=== PATIENT | male | born 1975 | race Caucasian/White ===

== ENCOUNTER 2020-03-14 13:37 | Observation (INO) ==
[2020-03-14] MEDS ORDERED: ASPIRIN 81 MG TAB.CHEW PO ONE (14:03)
--- NOTE | 2020-03-14 14:08 | ERNOTE ---
Dyspnea - Date Date of Service: 03/14/20 - General Presenting Symptoms: shortness of breath, other - chest tightness Time Seen by Provider: 03/14/20 13:46 Source: patient Exam Limitations: no limitations - Immun/Allergies/Home Medications Immunizations: IMMUNIZATION HX Immunizations Up to Date Yes History of Influenza Vaccine No Hx Pneumococcal Vaccination No Allergies/Adverse Reactions: Allergies No Known Allergies Allergy (Verified 03/14/20 13:48) seasonal Allergy (Uncoded 03/14/20 13:48) Home Medications: HOME MEDICATIONS multivitamin 1 tab PO DAILY 10/27/18 [Last Taken Unknown] Mv-Min/Vit C/Glut/Lysine/Hc124 [Airborne Tablet Chewable] 1 ea PO DAILY 03/14/20 [Last Taken Unknown] [place]-3 Fatty Acids/Fish Oil [Fish Oil 1,000 mg Capsule] 1 ea PO DAILY 03/14/20 [Last Taken Unknown] - History of Present Illness Narrative: -44-year-old man 44-year-old male presents today for an ongoing 8-week history of shortness of breath, tightness, mild chest pain. Patient notes he also gets significant burning in his esophagus post eating. He is unsure if the symptoms are related however they appear to coincide together on a daily basis. Patient has significant history of PE in 2013 he was anticoagulated for 6 months and then DC'd the treatment, he is unsure of the cause of his original PE and is unaware if he has any certain genetic blood related risk factors. Patient notes he also has developed a cough over the past few weeks. He gets significant amount of sinus drainage on a daily basis, he notes it has been blood tinged on occasion he also notes significant dry mouth and mild sore throat. He notes this condition has been same over the past few weeks. Patient notes he is not currently on any anticoagulation, he notes he has not had any significant home medications that improve or worsen his symptoms. He notes he has not attempted any other medications. Review of Systems - Review of Systems Constitutional: Absent: fever, chills, weakness, fatigue EYE: Absent: blurred vision, double vision ENT: Present: nose congestion, nasal drainage, sore throat. Absent: ear pain Respiratory: Present: shortness of breath, cough Cardiology: Present: chest pain - tightness. Absent: syncope, edema Gastrointestinal/Abdominal: Absent: nausea, vomiting, diarrhea, constipation Musculoskeletal: Present: joint pain - right knee previous injury. Absent: back pain Neurological: Absent: weakness, numbness, tingling Endocrine: Absent: unexplained weight gain, unexplained weight loss All Other Systems: All systems neg except as marked Medical History (Last Reviewed 03/14/20 @ 14:05 by ABRAHAM Rodriguez) Has not received influenza vaccination in current influenza season (Acute) Onset Date: 12/23/18 Perforation of tympanic membrane (Chronic) Onset Date: 02/22/13 Obstructive sleep apnea (Chronic) Onset Date: Unknown Hypogonadism in male (Chronic) Onset Date: Unknown DVT (deep venous thrombosis) (Chronic) Onset Date: 06/24/14 Depression (Chronic) Onset Date: 03/25/14 Bronchitis (Acute) Pulmonary embolism Surgical History: Surgical History (Last Reviewed 03/14/20 @ 14:05 by ABRAHAM Rodriguez) History of tonsillectomy (Acute) Onset Date: Unknown History of nasal septoplasty (Acute) Onset Date: Unknown History of cholecystectomy (Acute) Onset Date: Unknown History of bunionectomy (Inactive) Onset Date: 01/29/06 Family History: Family History (Last Reviewed 03/14/20 @ 14:05 by ABRAHAM Rodriguez) Other Alive and well Social History: (Last Reviewed 03/14/20 @ 14:05 by ABRAHAM Rodriguez) Social History: correction: No Marital status: household members: spouse current occupational status: employed current occupation: verification engineer Highest education level completed: Associate degree: occupat Service: No Tobacco: Smoking Status: Never smoker Alcohol: alcohol intake: current alcohol intake frequency: holiday/special occasion Substance Use: substance use type: does not use Dietary Habits: caffeine: Yes Exercise: frequency: does not exercise Physical Exam - Physical Exam General Appearance: Present: wd/wn, alert, mild distress Head Exam: Present: normal inspection, no evidence of injury Eye Exam: Normal inspection: bilateral, PERRL: bilateral, EOMI: bilateral Ears, Nose, Throat: Present: normal ENT inspection, other - Minimal erythema the posterior wall of the oropharynx Neck: Present: normal inspection, nontender Respiratory: Present: normal breath sounds, no accessory muscle use, chest nontender, lungs clear, other - Mild desaturation upon discussion Cardiovascular/Chest: Present: regular rate, rhythm, no murmur, normal peripheral pulses Peripheral Pulses: N=norm/S=strong/W=weak/B=bound/A=absent: Radial (R): Normal, Radial (L): Normal, Dorsalis-pedis (R): Normal, Dorsalis-pedis (L): Normal Gastrointestinal/Abdominal: Present: normal bowel sounds, nondistended, soft, tenderness - Mild in the upper right quadrant Extremity Exam: Present: normal inspection, normal range of motion Neurological Exam: Present: alert, oriented, normal mood/affect, no motor /sensory deficits Skin Exam: Present: normal color, warm/dry Progress - Date and Time Seen: Date and Time: 03/14/20 14:07 Patient has been evaluated a thorough HPI as well as past medical history is been taken. Physical exam was performed, note patient had significant decrease in his saturation upon having a conversation into the upper 80s. An EKG was performed, there are inverted T waves, could be a possible sign of ischemia. Chest pain protocol has been initiated, labs are being obtained. Patient is mildly tachycardic. With patient's current presentation and his previous history of a PE feel there is also need to rule out the possibility of a recurrent PE at this time. D-dimer was ordered we will continue chest pain protocol as well as acute monitoring of patient for worsening or changes. 03/14/20 14:58 Patient's d-dimer came back significantly elevated he is still continued to have significant desaturation as well as tachypnea, tachycardia, shortness of breath. At this time believe it is warranted to proceed with a CTA chest to evaluate for PE. Discussed this with patient, continue monitoring and further testing is warranted. He expressed understanding at this time. - Results and Orders Patient's Lab Results:: I have reviewed the patient's lab results. Results and Orders: Laboratory Tests 03/14/20 03/14/20 03/14/20 14:13 14:13 14:13 Hgb 15.3 PT 11.7 H INR (Anticoag Therapy) 1.19 H D-Dimer 4.03 H Laboratory Tests 03/14/20 14:13 Creatinine 1.19 Random Glucose 171 H Troponin I 0.053 Laboratory Tests 03/14/20 03/14/20 14:13 15:02 Potassium 4.8 H AST 67 H ALT 117 H B-Natriuretic Peptide 1557 H - Vital Signs Patient's Vital Signs:: I have reviewed the patient's vital signs. Vital Signs: Vital Signs 03/14/20 13:40 Temperature 35.9 C L Pulse Rate 106 H Respiratory Rate 21 H Blood Pressure 142/84 H O2 Sat by Pulse Oximetry 92 L - EKG EKG #1 EKG: other EKG read: Reviewed by me EKG Comments: Sinus tachycardia, moderate T wave abnormality possible ischemia with inverted T waves in V2 and V3 leads - CT/Ultrasound CT/Ultrasound Narrative: History: Elevated d-dimer. Shortness of breath. Tachypnea. Rule out PE. Technique: Multislice helical acquisition of the chest from the upper lung gallardo to the lower lung gallardo performed with IV contrast enhancement. Coronal MIP reconstruction images also performed per PE protocol. Individualized dose optimization technique was used for the performed procedure including automated exposure control, adjustment of the MA and or KV according to patient size and/or use of iterative reconstruction technique. Findings: There is soft tissue attenuation secondary to patient obesity. Exam shows intraluminal thrombus within the distal aspect of the left main pulmonary artery and the distal aspect of the right main pulmonary artery. There is no saddle embolus. There is then thrombus seen within multiple branches throughout the left upper lobe, left lower lobe, right upper lobe, right middle lobe, and right lower lobe. There is no evidence for right heart strain at this time. There is no pericardial effusion. There are no pleural effusions. There are degenerative changes in the thoracic spine. There is dependent atelectasis. IMPRESSION: EXTENSIVE BILATERAL PULMONARY EMBOLUS DISCUSSED. FINDINGS TELEPHONED TO EMERGENCY ROOM PERSONNEL AT 1542 HOURS. Electronically signed by Marlon Perez M.D.. Marlon Perez MD - Progress/Reassessment Chief Complaint: Dyspnea Progress:: Unchanged Plan - Plan Plan: Plan to be admitted to Dr. Maya for further observation and continued monitoring as well as continued anticoagulation treatment. Patient was given initial dose of Lovenox in the ER today prior to transfer to the med/surge unit. Patient will continue on telemetry monitoring for further complications. Have discussed this treatment and the reasons for it. Patient continues to be tachypneic, sats in the low 90s and tachycardic with CT findings this would warrant admission for observation and continued monitoring. Patient at this time is not requiring supplemental oxygen however we will continue to monitor for possible acute changes. Departure Clinical Impression: Pulmonary embolism Qualifiers: Pulmonary embolism type: other Chronicity: acute Acute cor pulmonale presence: unspecified Qualified Code(s): I26.99 - Other pulmonary embolism without acute cor pulmonale - Departure Disposition: Still a patient Condition: Stable Print Language: Finnish
[2020-03-14 14:20] LABS: Hematocrit 45.7 % (42.0-52.0); Hemoglobin 15.3 gm/dL (13.5-18.0); Mean Cell Volume 94.2 fl (78-100); Mean Corpuscular Hemoglobin 31.5 pg (27-31); Mean Corpuscular Hgb Conc 33.5 g/dl (32-36); Mean Platelet Volume 10.4 fl (8-11.3); Neutrophil # 7.1 K/mm3 (1.3-6.0); Neutrophil % 65.8 % (42-75.0); Platelet Count 154 K/mm3 (150-450); Red Blood Count 4.85 M/mm3 (4.7-6.0); White Blood Count 10.8 K/mm3 (4.0-10.5)
[2020-03-14 14:30] LABS: Prothrombin Time (Patient) 11.7 Seconds (9.1-10.7)
[2020-03-14 14:31] LABS: INR 1.19 INR (0.92-1.08); Partial Thrombolplastin Time 25.5 Seconds (24-32)
[2020-03-14 14:49] LABS: Albumin * 3.9 gm/dl (3.4-5.0); BUN/Creatinine Ratio 10.1 (9.0-21.6); Bilirubin, Total 0.9 mg/dL (0.0-1.1); Ca. Corrected For Albumin 8.8 mg/dL (8.4-10.2); Carbon Dioxide 18.8 mmol/L (24-32.6); Potassium 4.8 mmol/L (3.4-4.6)
[2020-03-14 14:52] LABS: Troponin I 0.053 ng/mL (0.00-0.10)
[2020-03-14] MEDS ORDERED: ENOXAPARIN SODIUM 100 MG/ML SYRG SC SCH (16:00)
--- NOTE | 2020-03-14 19:21 | HP ---
Chief Complaint - Chief Complaint Date of Service: 03/14/20 Time of Service: 16:00 Chief Complaint: Shortness of breath History of Present Illness: Jason is a 44 yo male with PMH of DVT and PE approximately 6 years ago. He has had progressive shortness of breath for the past few days. He came to the ER today and had elevated DDimer and a chest ct showed bilateral pulmonary embolisms. He was noted to be low 90% on room air but would dropinto the 80s with activity. He was on xarelto for 6 months and then stopped after his previous PE was treated. He reports he has been doing well since then. He has no other chronic medical problems. 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 He does not smoke, he has no known family members with history of blood clot. He reports his diet, medications, and activity have been the same over the past year. Medical History (Last Reviewed 03/14/20 @ 16:40 by Rosalinda James RN) Has not received influenza vaccination in current influenza season (Acute) Onset Date: 12/23/18 Perforation of tympanic membrane (Chronic) Onset Date: 02/22/13 Obstructive sleep apnea (Chronic) Onset Date: Unknown Hypogonadism in male (Chronic) Onset Date: Unknown DVT (deep venous thrombosis) (Chronic) Onset Date: 06/24/14 Depression (Chronic) Onset Date: 03/25/14 Bronchitis (Acute) Pulmonary embolism Surgical History: Surgical History (Last Reviewed 03/14/20 @ 14:05 by ABRAHAM Rodriguez) History of tonsillectomy (Acute) Onset Date: Unknown History of nasal septoplasty (Acute) Onset Date: Unknown History of cholecystectomy (Acute) Onset Date: Unknown History of bunionectomy (Inactive) Onset Date: 01/29/06 Family History: Family History (Last Reviewed 03/14/20 @ 14:05 by ABRAHAM Rodriguez) Other Alive and well Social History: (Last Reviewed 03/14/20 @ 14:05 by ABRAHAM Rodriguez) Social History: shelter: No Marital status: household members: spouse current occupational status: employed current occupation: telecommunications network engineer Highest education level completed: Associate degree: occupat Service: No Tobacco: Smoking Status: Never smoker Alcohol: alcohol intake: current alcohol intake frequency: holiday/special occasion Substance Use: substance use type: does not use Dietary Habits: caffeine: Yes Exercise: frequency: does not exercise Review Of Systems (GEN) - Review of Systems Generalized/Overall Review: Present: Weakness. Absent: Chills, Fever EENTM: Present: Nose Congestion. Absent: Blurred Vision Respiratory: Present: Cough, Shortness of Breath Cardiac: Present: Chest Pain, Palpitations. Absent: Edema Abdominal: Absent: Nausea, Vomiting Genitourinary: Present: No Symptoms Reported Musculoskeletal: Present: No Symptoms Reported Neurological: Present: Weakness. Absent: Headache Skin: Absent: Lumps, Change in Color Immunizations: IMMUNIZATION HX Immunizations Up to Date Yes History of Influenza Vaccine No Hx Pneumococcal Vaccination No Allergies/Adverse Reactions: Allergies Allergy/AdvReac Type Severity Reaction Status Date / Time No Known Allergies Allergy Verified 03/14/20 13:48 seasonal Allergy Uncoded 03/14/20 13:48 Home Medications: HOME MEDICATIONS multivitamin 1 tab PO DAILY 10/27/18 [Last Taken Unknown] Mv-Min/Vit C/Glut/Lysine/Hc124 [Airborne Tablet Chewable] 1 ea PO DAILY 03/14/20 [Last Taken Unknown] [place]-3 Fatty Acids/Fish Oil [Fish Oil 1,000 mg Capsule] 1 ea PO DAILY 03/14/20 [Last Taken Unknown] Exam - Exam Vital Signs: Vital Signs - Last Taken Temp 37.1 C 03/14/20 16:40 Pulse 102 H 03/14/20 17:00 Resp 24 H 03/14/20 16:40 BP 157/94 H 03/14/20 16:40 Pulse Ox 94 03/14/20 16:40 Constitutional: Present: Alert, Oriented x3, Cooperative, No distress, Morbidly obese ENT Exam: Present: hearing grossly normal Eye Exam: bilateral eye: normal inspection Respiratory: Present: lungs clear, normal breath sounds, no respiratory distress Cardiovascular/Chest: Present: no murmur Abdomen: Present: Normal bowel sounds, soft, nontender, nondistended Skin Exam: Present: normal color, warm/dry, no cyanosis Neurologic: Present: alert, normal mood/affect, oriented x 3 Appearance: Present: appropriate appearance, appropriate insight Eye contact: Present: cooperative, good eye contact, normal speech Diagnostic Studies: Abnormal Lab Results 03/14/20 03/14/20 03/14/20 Range/Units 14:13 14:13 14:13 WBC 10.8 H (4.0-10.5) K/mm3 MCH 31.5 H (27-31) pg Neutrophils # 7.1 H (1.3-6.0) K/mm3 PT 11.7 H (9.1-10.7) Seconds INR (Anticoag Therapy) 1.19 H (0.92-1.08) INR D-Dimer (0.19-0.49) ug/mL Plasma Sodium 143 H (130-142) mmol/L Potassium 4.8 H (3.4-4.6) mmol/L Carbon Dioxide 18.8 L (24-32.6) mmol/L Anion Gap 22.0 H (6.8-13.8) mmol/L Random Glucose 171 H (70-110) mg/dL AST 67 H (0-48) U/L ALT 117 H (19-67) U/L B-Natriuretic Peptide (5-140) pg/mL 03/14/20 03/14/20 Range/Units 14:13 15:02 WBC (4.0-10.5) K/mm3 MCH (27-31) pg Neutrophils # (1.3-6.0) K/mm3 PT (9.1-10.7) Seconds INR (Anticoag Therapy) (0.92-1.08) INR D-Dimer 4.03 H (0.19-0.49) ug/mL Plasma Sodium (130-142) mmol/L Potassium (3.4-4.6) mmol/L Carbon Dioxide (24-32.6) mmol/L Anion Gap (6.8-13.8) mmol/L Random Glucose (70-110) mg/dL AST (0-48) U/L ALT (19-67) U/L B-Natriuretic Peptide 1557 H (5-140) pg/mL Laboratory Results WBC 10.8 K/mm3 (4.0-10.5) H 03/14/20 14:13 RBC 4.85 M/mm3 (4.7-6.0) 03/14/20 14:13 Hgb 15.3 gm/dL (13.5-18.0) 03/14/20 14:13 Hct 45.7 % (42.0-52.0) 03/14/20 14:13 MCV 94.2 fl (78-100) 03/14/20 14:13 MCH 31.5 pg (27-31) H 03/14/20 14:13 MCHC 33.5 g/dl (32-36) 03/14/20 14:13 RDW 13.0 % (11.5-14.0) 03/14/20 14:13 Plt Count 154 K/mm3 (150-450) 03/14/20 14:13 MPV 10.4 fl (8-11.3) 03/14/20 14:13 Immature Gran % (Auto) 0.10 % (0.001-0.429) 03/14/20 14:13 Immature Gran # (Auto) 0.01 K/mm3 (0.000-0.0310) 03/14/20 14:13 Neutrophils % 65.8 % (42-75.0) 03/14/20 14:13 Lymphocytes % 24.5 % (20-51) 03/14/20 14:13 Monocytes % 7.1 % (0.0-9) 03/14/20 14:13 Eosinophils % 1.9 % (0.0-3.0) 03/14/20 14:13 Basophils % 0.6 % (0.0-1.0) 03/14/20 14:13 Nucleated RBC % 0.0 k/mm3 (0-1) 03/14/20 14:13 Neutrophils # 7.1 K/mm3 (1.3-6.0) H 03/14/20 14:13 Lymphocytes # 2.64 k/mm3 (1.5-3.5) 03/14/20 14:13 Monocytes # 0.8 k/mm3 (0.0-1.0) 03/14/20 14:13 Eosinophils # 0.2 k/mm3 (0.0-0.7) 03/14/20 14:13 Absolute Basophils 0.1 k/mm3 (0.0-0.1) 03/14/20 14:13 PT 11.7 Seconds (9.1-10.7) H 03/14/20 14:13 INR (Anticoag Therapy) 1.19 INR (0.92-1.08) H 03/14/20 14:13 PTT (Bimal) 25.5 Seconds (24-32) 03/14/20 14:13 D-Dimer 4.03 ug/mL (0.19-0.49) H 03/14/20 14:13 Sodium 142 mmol/L (132-142) 03/14/20 14:13 Plasma Sodium 143 mmol/L (130-142) H 03/14/20 14:13 Potassium 4.8 mmol/L (3.4-4.6) H 03/14/20 14:13 Chloride 106 mmol/L (97-106) 03/14/20 14:13 Carbon Dioxide 18.8 mmol/L (24-32.6) L 03/14/20 14:13 Anion Gap 22.0 mmol/L (6.8-13.8) H 03/14/20 14:13 BUN 12 mg/dL (6-23) 03/14/20 14:13 Creatinine 1.19 mg/dL (0.4-1.4) 03/14/20 14:13 Est GFR (Non-Af Amer) 70 mL/min (60-130) 03/14/20 14:13 BUN/Creatinine Ratio 10.1 (9.0-21.6) 03/14/20 14:13 Random Glucose 171 mg/dL (70-110) H 03/14/20 14:13 Calcium 9.0 mg/dL (7.9-10.9) 03/14/20 14:13 Calcium Adj for Albumin 8.8 mg/dL (8.4-10.2) 03/14/20 14:13 Total Bilirubin 0.9 mg/dL (0.0-1.1) 03/14/20 14:13 AST 67 U/L (0-48) H 03/14/20 14:13 ALT 117 U/L (19-67) H 03/14/20 14:13 Alkaline Phosphatase 54 U/L (50-170) 03/14/20 14:13 Troponin I 0.053 ng/mL (0.00-0.10) 03/14/20 14:13 B-Natriuretic Peptide 1557 pg/mL (5-140) H 03/14/20 15:02 Total Protein 7.0 gm/dL (6.2-8.2) 03/14/20 14:13 Albumin 3.9 gm/dl (3.4-5.0) 03/14/20 14:13 Assessment/Plan - Narrative Narrative: Jason is a 44 yo male with acute respiratory failure with hypoxia with activity secondary to bilateral pulmonary embolism. He has a prior history of PE and was previously treated with Xarelto. He reports he did well with this medication and did not have side effects. He was given a dose of treatment level lovenox in the ER. Will plan to start xarelto this evening and continue this indefinitely. Because of his second PE he should consider remaining on Xarelto. Due to increased need for oxygen, but only with activity, will monitor in observation as we start anticoagulation and check his need for home oxygen. If he is doing well he may be discharged to home tomorrow. - Assessment/Plan (1) Acute respiratory failure with hypoxia Problem: Acute (2) Pulmonary embolism Problem: Acute Qualifiers: Pulmonary embolism type: other Chronicity: acute Acute cor pulmonale presence: unspecified Qualified Code(s): I26.99 - Other pulmonary embolism without acute cor pulmonale
[2020-03-14] MEDS: FLUTICASONE PROPIONATE 120 SPRAY INHALER NS SCH (19:35)
[2020-03-15] MEDS ORDERED: RIVAROXABAN 15 MG TABLET PO SCH (04:00)
[2020-03-15] MEDS: FLUTICASONE PROPIONATE 120 SPRAY INHALER NS SCH (08:09)
[2020-03-15] MEDS ORDERED: MULTIVITAMINS 1 CAP CAPSULE PO SCH (09:00)
--- NOTE | 2020-03-15 10:43 | DS ---
(1) Acute respiratory failure with hypoxia Problem: Resolved (2) Pulmonary embolism Problem: Acute Qualifiers: Pulmonary embolism type: other Chronicity: acute Acute cor pulmonale presence: unspecified Qualified Code(s): I26.99 - Other pulmonary embolism without acute cor pulmonale Date of Discharge:: 03/15/20 Hospital Course: Jason is a 44 yo male admitted to observation due to bilateral pulmonary embolism and acute respiratory failure with hypoxia with ambulation. He did not require oxygen as his oxygen saturation improved to >90% with rest. He was given Lovenox weight based in the ER and then started on xarelto. He was monitored overnight and had no desaturation of oxygen. He is mildly short of breath with activity but his oxygen does not significantly drop. He will be discharged to home today on xarelto for 15mg BID x 21 days then 20mg daily for longterm as this is his second episode of pulmonary embolisms. Procedures Performed: none Results and Findings: Lab Pending Results 03/14/20 14:13: WBC 10.8 H, RBC 4.85, Hgb 15.3, Hct 45.7, MCV 94.2, MCH 31.5 H, MCHC 33.5, RDW 13.0, Plt Count 154, MPV 10.4, Immature Gran % (Auto) 0.10, Immature Gran # (Auto) 0.01, Neutrophils % 65.8, Lymphocytes % 24.5, Monocytes % 7.1, Eosinophils % 1.9, Basophils % 0.6, Nucleated RBC % 0.0, Neutrophils # 7.1 H, Lymphocytes # 2.64, Monocytes # 0.8, Eosinophils # 0.2, Absolute Basophils 0.1 03/14/20 14:13: PT 11.7 H, INR (Anticoag Therapy) 1.19 H, PTT (Bimal) 25.5 03/14/20 14:13: Sodium 142, Plasma Sodium 143 H, Potassium 4.8 H, Chloride 106, Carbon Dioxide 18.8 L, Anion Gap 22.0 H, BUN 12, Creatinine 1.19, Est GFR (Non- Af Amer) 70, BUN/Creatinine Ratio 10.1, Random Glucose 171 H, Calcium 9.0, Calcium Adj for Albumin 8.8, Total Bilirubin 0.9, AST 67 H, ALT 117 H, Alkaline Phosphatase 54, Troponin I 0.053, Total Protein 7.0, Albumin 3.9 03/14/20 14:13: D-Dimer 4.03 H 03/14/20 15:02: B-Natriuretic Peptide 1557 H Discharge Location: Home Disposition: Home self-care Condition: Good Discharge Activity: Activity as tolerated Discharge Diet: General/regular food Referrals: Hubert Maya DO [Staff Physician] - 03/20/20 Problem Oriented Discharge Instructions to Patient/Family: Pulmonary Embolism Additional Patient Instructions (free text): Jason will be off work until 03/20/20. He will be seen in clinic on that day and determined he can return to work or extended. Prescriptions (Any new or edited meds): Rivaroxaban [Xarelto] 15 mg PO Q12H #40 tab Transmission Status: Pending to [facility] Complete Home Medications List: Complete Home Medication List: multivitamin 1 tab PO DAILY 10/27/18 Mv-Min/Vit C/Glut/Lysine/Hc124 [Airborne Tablet Chewable] 1 ea PO DAILY 03/14/20 [place]-3 Fatty Acids/Fish Oil [Fish Oil 1,000 mg Capsule] 1 ea PO DAILY 03/14/20 Rivaroxaban [Xarelto] 15 mg PO Q12H #40 tab 03/15/20
[2020-03-15 11:03] VITALS: BP 113/72
== END 2020-03-15 11:36 | disposition home or self-care (01) ==
LOC: MS 13:37 → ER 13:37 → MS 16:40
PROVIDERS: ADMIT Family Medicine; ATTEND Family Medicine
DX: J96.01 Acute respiratory failure with hypoxia; I26.99 Other pulmonary embolism without acute cor pulmonale; G47.33 Obstructive sleep apnea (adult) (pediatric); Z86.711 Personal history of pulmonary embolism
CPT/HCPCS: 36415; 71275; 80053; 83519; 83880; 84484; 85025; 85379; 85610; 85730; 93005; 94660; 96372; 99285; Q9967